=== PATIENT | male | born 1965 | race American Indian/Alaskan Native ===

== ENCOUNTER 2022-05-19 08:43 | Day surgery (SDC) | payer BC ==
[~2022-05-19 08:43] MED LIST: HYDROmorphone 1 MG/1 ML INJ ONE; LACTATED RINGERS 1,000 ML IV SCH; LIDOCAINE MPF (2%) 20 MG/1 ML VIAL 5 ML ONE; MIDAZOLAM 2 MG/2 ML INJ IV NR; WATER FOR IRRIG STERILE 2000 ML IR ONE; propofoL 200 MG/20 ML VIAL IV ONE
[2022-05-19] MEDS ORDERED: ceFAZolin/STERILE WATER 2 GM/20 ML SYRINGE IV NR (09:45)
[2022-05-19] MEDS ORDERED: WATER FOR INJ Sterile (PF) 0 ML ONE (09:46)
[2022-05-19] MEDS ORDERED: ceFAZolin/Water 2 GM/20 ML 2 GM/20 ML SYRINGE IV ONE (09:46)
--- NOTE | 2022-05-19 10:00 | Anesthesia Consultation ---
<ANNE-MARIE ONEAL - Last Filed: 05/19/22 09:59> Anesthesia Consult and Med Hx Date of service: 05/19/22 - Airway Anesthetic Teeth Evaluation: Poor ROM Head & Neck: Adequate Mental/Hyoid Distance: Adequate Mallampati Class: Class II Intubation Access Assessment: Good - Pulmonary Exam CTA: Yes - Cardiac Exam Cardiac Exam: RRR - Pre-Operative Health Status ASA Pre-Surgery Classification: ASA2 Proposed Anesthetic Plan: General - Pulmonary Hx Smoking: No Hx Sleep Apnea: No (RENA PRE SCREEN LOW RISK) - Cardiovascular System Hx Hypertension: No - Central Nervous System Hx Back Pain: Yes (NECK, acdf) Hx Psychiatric Problems: No - Hematic Hx Sickle Cell Disease: No - Other Systems Hx Alcohol Use: Yes (OCC.) Hx Substance Use: No Hx Cancer: No - Additional Comments Anesthesia Medical History Comments: h/o leonel hip repacement <JOHNNY SINCLAIR - Last Filed: 05/19/22 10:51> Anesthesia Consult and Med Hx - Pre-Operative Health Status ASA Pre-Surgery Classification: ASA2 - Additional Comments Anesthesia Medical History Comments: HIV controlled on ARVs.
--- NOTE | 2022-05-19 10:01 | Anesthesia Day of Surgery ---
Anesthesia Day of Surgery - Day of Surgery Patient Examined: Yes Patient H&P Reviewed: Yes Patient is NPO: Yes
[2022-05-19] MEDS ORDERED: ONDANSETRON 4 MG/2 ML INJ ONE (10:38)
[2022-05-19] MEDS ORDERED: KETOROLAC 30 MG/1 ML INJ ONE (10:38)
--- NOTE | 2022-05-19 10:44 | Short Stay Summary ---
Short Stay Documentation Date of service: 05/12/22 - History H&P: obtained from office - Allergies and Medications Current Medications: Allergies No Known Allergies Allergy (Verified 04/19/22 16:23) Home Medications Medication Instructions Recorded Confirmed Last Taken Type Emtricitab/Rilpiviri/Tenof Ala 1 tab PO DAILY 04/19/22 05/19/22 05/18/22 History [Odefsey Tablet] Active Medications Cefazolin Sodium (Cefazolin/Sterile Water 2 Gm/20 Ml Syringe) 2 gm IV PREOP NR Stop: 05/19/22 23:59 Lactated Ringer's (Lactated Ringers) 1,000 mls @ 100 mls/hr IV DIRECT TEJINDER Stop: 05/19/22 23:59 Last Admin: 05/19/22 09:14 Dose: 100 mls/hr Midazolam HCl (Midazolam 2 Mg/2 Ml Inj) 2 mg IV PREOP NR Stop: 05/19/22 19:00 Last Admin: 05/19/22 09:56 Dose: 2 mg - Brief post op/procedure progress note Date of procedure: 05/19/22 Pre-op diagnosis: BPH Post-op diagnosis: same Procedure: MACROBID, NORCO, FLOMAX ON CHART Short Stay Discharge Plan Follow up with: JEREL ESPINOZA [Other] - 7 Days
--- NOTE | 2022-05-19 11:05 | Operative Report ---
DATE OF SURGERY: 05/19/2022 PREOPERATIVE DIAGNOSIS: Benign prostatic hypertrophy. POSTOPERATIVE DIAGNOSIS: Benign prostatic hypertrophy. PROCEDURES: Cystoscopy, Rezum vapor therapy of the prostate. SURGEON: Jevon Hillman MD ANESTHESIA: General. ESTIMATED BLOOD LOSS: Minimal. FLUIDS: Crystalloid. COMPLICATIONS: No complications. INDICATIONS: This patient is a 56-year-old gentleman seen in the office by Dr. Mortensen, had obstructive urinary symptoms and urinary tract infections. He underwent cystoscopy. He has been tried on Flomax in the past with minimal improvement of his symptoms. He underwent cystoscopy 11/2021, was found to have some trilobar obstruction, presents now for Rezum procedure. Risks, benefits, complications were explained. The patient agreed to proceed with surgical intervention. DESCRIPTION OF PROCEDURE: The patient was taken to the operative suite, placed in a supine position. After adequate general anesthesia, he was prepped and draped in a sterile fashion. Cystourethroscopy was performed with a 22-Israeli Storz cystoscope, no urethral abnormalities. His prostate displayed mainly bilobar obstruction of mild median bar. Bladder, no tumors or stones. Both ureteral orifices in normal position. Next, using the Rezum probe, I measured a length of 3.5 cm and therefore, I actually did six treatments in a zigzag fashion at the bladder neck at the 5 o'clock position and 7 o'clock position and then up at the 10 and 2 o'clock positions for the next lesions and then back down to the 5 and 7 o'clock positions for the distal lesions. The patient tolerated the procedure well. A 20-Israeli coude catheter was placed. Clear urine. Rectal exam was benign. He was extubated and taken to recovery room. He will go home on Flomax, Orient and Macrobid. TID: [id number] RECEIPT: [id number] [facility]
[2022-05-19 12:14] VITALS: BP 124/80
--- NOTE | 2022-05-19 13:52 | Post Anesthesia Evaluation ---
- Post Anesthesia Evaluation Patient Participated: Yes Airway Patent: Yes Stable Respiratory Function: Yes Nausea/Vomiting: No Temp > 96.8F: Yes Pain Manageable: Yes Adequeate Hydration: Yes Anesthesia Complications: No
== END 2022-05-19 12:30 | disposition home or self-care (01) ==
LOC: OR 08:43
PROVIDERS: ATTEND Urology
DX: N40.0 Benign prostatic hyperplasia without lower urinary tract symptoms (principal); M19.90 Unspecified osteoarthritis, unspecified site; Z96.643 Presence of artificial hip joint, bilateral; Z72.89 Other problems related to lifestyle; Z98.890 Other specified postprocedural states; Z79.899 Other long term (current) drug therapy; Z87.440 Personal history of urinary (tract) infections
CPT/HCPCS: 53854; J0690; J1170; J1885; J2250; J2405; J2704; J7120